=== PATIENT | female | born 1965 ===

== ENCOUNTER 2021-01-03 05:45 | Day surgery (SDC) | payer OTHER | END 2021-01-03 09:35 | disposition home or self-care (01) | LOC: AMB-ENDOS 05:45 | PROVIDERS: ATTEND Colon & Rectal Surgery | DX: K62.0 Anal polyp (principal); K62.1 Rectal polyp; K64.2 Third degree hemorrhoids; Z20.822 Contact with and (suspected) exposure to COVID-19 ==